=== PATIENT | female | born 1955 | race Caucasian/White ===

== ENCOUNTER 2017-01-29 05:36 | Day surgery (SDC) | payer OTHER ==
[~2017-01-29] VITALS: Ht 160 cm; Wt 63.7 kg
[~2017-01-29 05:36] MED LIST: GEMF600T60 PO
[2017-01-29 06:34] VITALS: Ht 160 cm; Wt 63.7 kg
[2017-01-29 07:06] VITALS: BP 106/67; PULSE 44; RESP 16
[2017-01-29] MEDS ORDERED: MIDAZOLAM 1 MG/ML 2 ML INJ ONE (07:51)
[2017-01-29] MEDS ORDERED: FENTAnyl 50 MCG/ML VIAL ONE (07:51)
[2017-01-29 08:11] VITALS: BP 94/53; PULSE 62; RESP 24
--- NOTE | 2017-02-01 15:19 | GILP ---
DATE OF PROCEDURE: 01/29/2017 PROCEDURE PERFORMED: Esophagogastroduodenoscopy and biopsy. SURGEON: Amador Agustin MD PREOPERATIVE DIAGNOSIS: Chronic heartburn. POSTOPERATIVE DIAGNOSES: Hiatal hernia. Reflux esophagitis with erosions. Gastritis with erosions. Gastric mucosal biopsies were taken for Helicobacter pylori test. Small gastric polyps. INDICATION: The patient is a 61-year-old female patient, who had chronic heartburn not responding to therapy. The patient was scheduled for endoscopy examination for further evaluation. The procedure and possible complications were well explained to the patient. The patient understood and consented to the procedure. DESCRIPTION OF PROCEDURE: Under fentanyl and Versed, the gastroscope was carefully introduced into the esophagus under direct vision. It was advanced to the stomach, into the pylorus, into the duodenal bulb, and descending duodenum. FINDINGS: Esophagus: The patient had hiatal hernia and reflux esophagitis and erosions. Stomach: The patient had gastritis with erosions. Gastric mucosal biopsies were taken for Helicobacter pylori test. The patient was also noted to have small gastric polyps. Duodenum: Normal. The patient tolerated the procedure very well. There was no complication from the procedure. At the end of procedure, she was awake with stable vital signs and she was discharged 1 week to the care of her family. IMPRESSION: Please see postop diagnoses. PLAN: Omeprazole 40 mg p.o. q.a.m. Await H pylori test report. Dictated By: MD BETHANY Dhillon/shamir/vanda /Document#: [id number]
--- NOTE | 2017-02-06 08:41 | CONS ---
DATE OF ADMISSION: 01/29/2017 DATE OF CONSULTATION: TYPE OF CONSULTATION: Preoperative gastroenterology. I thank you very much for this kind referral. HISTORY OF PRESENT ILLNESS: Ms. Nyla Bowen is a 61-year-old female patient who has been referre d to me for further evaluation of diverticular disease of the colon. The patient is known to have h ad diverticulosis. She said that she had a colonoscopy 2 years ago. Recently she had an episode of acute diverticulitis which needed antibiotic therapy. At the present time, she does not have any l ower abdominal pain. She denies any change in the bowel habit or rectal bleeding. Her appetite has been good, and she is not losing any weight. The patient complains of chronic heartburn associated with burping. Symptomatic medical therapy is not helping her. There is no past history of peptic ulcer disease. She is not taking any nonsteroidal anti-inflammatory agents. There is no history of gallstones. She does not have any fever, chills or jaundice. There is no history of liver disease . She is not a hypertensive or diabetic. She does not have any heart disease or lung problem. The re is no history of kidney disease. SOCIAL HISTORY: She is a nonsmoker. She does not abuse alcohol. FAMILY HISTORY: Particular for the history of pancreatic cancer in her brother and stomach cancer i n her grandmother. SURGICAL HISTORY: She is status post hysterectomy. ALLERGIES: THERE IS NO HISTORY OF SIGNIFICANT DRUG ALLERGY. MEDICATIONS: None. PHYSICAL EXAMINATION: GENERAL: She is 5 feet 2 inches tall, and she weighs 137 pounds. HEART: Normal first and second heart sounds. LUNGS: Clear. ABDOMEN: Soft without any distention. Liver and spleen are not palpable. There are no masses. Th ere is no focal tenderness. Normal bowel sounds are heard. CENTRAL NERVOUS SYSTEM: Examination does not reveal any focal neurological deficit. IMPRESSION: 1. Diverticular disease of the colon. 2. Status post acute diverticulitis, and at the present time, the patient does not have any pain. 3. Chronic heartburn not responding to therapy. 4. The patient says she had a colonoscopy 2 years ago, and no colon neoplasm was identified. 5. Status post hysterectomy. 6. The patient's brother had pancreatic cancer. 7. The patient's grandmother had stomach cancer. PLAN: 1. The patient was advised high-fiber diet. 2. Endoscopic examination to rule out erosive esophagitis. The procedure and possible complications are well explained to the patient. She understands and con sents to the procedure. I thank you once again. With warmest personal regards, Dictated By: JUANCHO SIMS/DAISY Conf#: [id number] DID#: [id number]
== END 2017-01-29 09:21 | disposition home or self-care (01) ==
LOC: GIL 05:36
PROVIDERS: ATTEND Internal Medicine Gastroenterology
DX: K21.0 Gastro-esophageal reflux disease with esophagitis (principal); K44.9 Diaphragmatic hernia without obstruction or gangrene; K57.30 Diverticulosis of large intestine without perforation or abscess without bleeding; Z90.49 Acquired absence of other specified parts of digestive tract; Z80.0 Family history of malignant neoplasm of digestive organs
CPT/HCPCS: 43239; 87081; J2250; J3010; Z7610